=== PATIENT | female | born 1985 ===

== ENCOUNTER 2017-08-04 13:32 | Emergency (ER) | payer MEDICAID ==
[2017-08-04 13:42] VITALS: TEMP 98.1
--- NOTE | 2017-08-04 14:03 | C.PDOC ---
History Of Present Illness <Dejon Phoenix - Last Filed: 08/04/17 14:01> <Mary Escalona - Last Filed: 08/04/17 20:28> 31 y/o female presents to ED with complaints of abdominal pain for 1 week worsening today. Patient states abdominal pain was consistent with menses but menses has went away and pain persists. Patient reports she catheterizes herself to empty bladder secondary to spinal cord injury. Patient states she has history of frequent UTI and currently denies fever, chills, vomiting, back pain or any other complaints at this time. (Dejon Phoenix) History Per: Patient History/Exam Limitations: no limitations Onset/Duration Of Symptoms: Days Current Symptoms Are (Timing): Still Present <Dejon Phoenix - Last Filed: 08/04/17 14:01> <Mary Escalona - Last Filed: 08/04/17 20:28> Time Seen by Provider: 08/04/17 13:47 Chief Complaint (Nursing): Abdominal Pain Past Medical History Reviewed: Historical Data, Nursing Documentation, Vital Signs - Medical History PMH: No Chronic Diseases Surgical History: No Surg Hx Family History: States: No Known Family Hx - Social History Hx Alcohol Use: Yes Hx Substance Use: No - Immunization History Hx Tetanus Toxoid Vaccination: Yes Hx Influenza Vaccination: Yes Hx Pneumococcal Vaccination: No <Dejon Phoenix - Last Filed: 08/04/17 14:01> Vital Signs: Last Vital Signs Temp 98.1 F 08/04/17 13:37 Pulse 54 L 08/04/17 16:09 Resp 18 08/04/17 16:09 BP 104/65 08/04/17 16:09 Pulse Ox 100 08/04/17 16:09 Review Of Systems Constitutional: Negative for: Fever, Chills Gastrointestinal: Positive for: Abdominal Pain. Negative for: Nausea, Vomiting Genitourinary: Negative for: Dysuria, Hematuria Skin: Negative for: Rash <Dejon Phoenix - Last Filed: 08/04/17 14:01> Physical Exam - Physical Exam Appears: Non-toxic, No Acute Distress Skin: Normal Color, Warm, Dry, No Rash Head: Atraumatic, Normacephalic Oral Mucosa: Moist Neck: Supple Cardiovascular: Rhythm Regular Respiratory: Normal Breath Sounds, No Rales, No Rhonchi, No Wheezing Gastrointestinal/Abdominal: Soft, No Tenderness, No Guarding, No Rebound, Other (LUQ and Left flank pain ) Back: No CVA Tenderness Extremity: Normal ROM, Capillary Refill (<2 seconds) Neurological/Psych: Oriented x3 <Dejon Phoenix - Last Filed: 08/04/17 14:01> ED Course And Treatment O2 Sat by Pulse Oximetry: 98 (RA) Pulse Ox Interpretation: Normal <Dejon Phoenix - Last Filed: 08/04/17 14:01> - Laboratory Results Result Diagrams: 08/04/17 15:36 08/04/17 15:36 Pulse Ox Interpretation: Normal Reevaluation Time: 20:28 Reassessment Condition: Improved <Mary Escalona - Last Filed: 08/04/17 20:28> Disposition <Dejon Phoenix - Last Filed: 08/04/17 14:01> Counseled Patient/Family Regarding: Studies Performed, Diagnosis, Need For Followup - Disposition Disposition Time: 19:00 <Mary Escalona - Last Filed: 08/04/17 20:28> - Disposition Referrals: [facility] [Outside] [facility] [Outside] Disposition: HOME/ ROUTINE Condition: FAIR Additional Instructions: Please return if symptoms recur Prescriptions: Polyethylene Glycol 3350 [Miralax] 17 gm PO DAILY #270 ml Instructions: Abdominal Pain (ED), Gas and Bloating (ED), Constipation (DC) Forms: [facility] (Hebrew) - Clinical Impression Clinical Impression: Abdominal pain, Constipation - Scribe Statement The provider has reviewed the documentation as recorded by the Scribe <Dejon Phoenix - Last Filed: 08/04/17 14:01> <Mary Escalona - Last Filed: 08/04/17 20:28> - Scribe Statement Eliza Tucker All medical record entries made by the Scribe were at my direction and personally dictated by me. I have reviewed the chart and agree that the record accurately reflects my personal performance of the history, physical exam, medical decision making, and the department course for this patient. I have also personally directed, reviewed, and agree with the discharge instructions and disposition. (Dejon Phoenix)
[2017-08-04 14:45] LABS: URINE BACTERIA RARE (<OCC); URINE BILIRUBIN NEGATIVE (NEGATIVE); URINE BLOOD NEGATIVE (NEGATIVE); URINE COLOR Colorless (YELLOW); URINE GLUCOSE (UA) NORMAL (Normal); URINE KETONE NEGATIVE (NEGATIVE); URINE LEUKOCYTE ESTERASE NEG Leu/uL (Negative); URINE PROTEIN NEGATIVE (NEGATIVE); URINE UROBILINOGEN NORMAL mg/dL (0.2-1.0); WBC URINE < 1 /hpf (0-5)
[2017-08-04 15:42] LABS: BASO # 0.1 K/uL (0.0-0.2); EOS # 0.2 K/uL (0.0-0.7); EOS % 1.5 % (0.0-4.0); HEMATOCRIT 44.7 % (34.0-47.0); LYMPH # 2.5 K/uL (1.0-4.3); LYMPH % 22.8 % (20.0-40.0); MEAN CELL VOLUME 90.1 fL (81.0-99.0); MEAN CORPUSCULAR HGB CONC 33.3 g/dL (33.0-37.0); MEAN PLATELET VOLUME 7.5 fL (7.2-11.7); MONO # 0.5 K/uL (0.0-0.8); MONO % 4.2 % (0.0-10.0)
[2017-08-04 15:54] LABS: ALKALINE PHOSPHATASE 58 U/L (38-126); ALT/SGPT 44 U/L (9-52); AST/SGOT 27 U/L (14-36); BILIRUBIN,TOTAL 0.4 mg/dL (0.2-1.3); BLOOD UREA NITROGEN 11 mg/dL (7-17); CALCIUM 8.4 mg/dl (8.6-10.4); CARBON DIOXIDE 31 mmol/L (22-30); CHLORIDE 105 mmol/L (98-107); GFR AFRICAN-AMERICAN > 60; GLUCOSE,RANDOM 84 mg/dL (65-105); POTASSIUM 4.3 mmol/L (3.6-5.2); SODIUM 137 mmol/L (132-148); TOTAL PROTEIN 7.8 g/dL (6.3-8.3)
[2017-08-04] MEDS ORDERED: Iohexol 240 (50 ml) ONE (17:48)
[2017-08-04] MEDS ORDERED: Iodixanol 320 MG/ML 200 ML BOTTLE IV ONE (19:29)
[2017-08-04 20:35] VITALS: BP 127/87; PULSE 84; RESP 16; O2SAT 98
--- NOTE | 2017-08-05 11:01 | CT ---
PROCEDURE: CT Abdomen and Pelvis with oral and IV contrast. HISTORY: left sided pain COMPARISON: None available. TECHNIQUE: Contiguous axial images of the abdomen and pelvis. Oral and IV contrast was administered. Coronal and Sagittal reformats generated and reviewed. Contrast dose: 100 mL Visipaque 320 Radiation dose: Total exam DLP = 368.62 mGy-cm. This CT exam was performed using one or more of the following dose reduction techniques: Automated exposure control, adjustment of the mA and/or kV according to patient size, and/or use of iterative reconstruction technique. FINDINGS: LOWER THORAX: No visible consolidation, pleural effusion, or pneumothorax. Partially imaged bilateral breast prostheses. LIVER: Unremarkable. GALLBLADDER AND BILE DUCTS: Unremarkable. PANCREAS: Unremarkable. SPLEEN: Unremarkable. ADRENALS: Unremarkable. KIDNEYS AND URETERS: The kidneys enhance symmetrically. No hydronephrosis or obstructing renal calculus. BLADDER: The urinary bladder appears unremarkable. REPRODUCTIVE: Uterus is present. APPENDIX: The appendix appears within normal limits of caliber. No secondary signs of acute appendicitis. BOWEL: The stomach is nondistended. The bowel loops appear within normal limits of caliber without evidence of intestinal obstruction. PERITONEUM: No significant free fluid. No definite free air. LYMPH NODES: No bulky lymphadenopathy identified. VASCULATURE: No aortic aneurysm. BONES: Posterior thoracolumbar fusion. L1 chronic compression fracture. OTHER FINDINGS: Small umbilical hernia. IMPRESSION: Constipation. Postsurgical changes of the spine with posterior fusion hardware. L1 compression fracture. Additional incidental findings as above. Preliminary impression was provided by virtual radiologic.
== END 2017-08-04 20:34 | disposition home or self-care (01) ==
LOC: C.ER 13:32
DX: K59.00 Constipation, unspecified (principal); R10.9 Unspecified abdominal pain
CPT/HCPCS: 74177; 80053; 81001; 84703; 85025; 99284; Q9966